=== PATIENT | male | born 1950 ===

== ENCOUNTER → 2020-07-04 | Day surgery (SDC) | payer OTHER ==
[2020-06-29 10:42] LABS: Basophils # (auto) 0.1 10 ^3/uL (0-0.2); Basophils % (auto) 1.2 % (0.0-2.0); Eosinophils # (auto) 0.4 10 ^3/uL (0-0.8); Eosinophils % (auto) 4.6 % (0.0-7.0); Hematocrit 45.2 % (41.0-53.0); Hemoglobin 15.9 g/dL (13.5-17.5); Lymphocytes # (auto) 2.2 10 ^3/uL (0.4-5.4); Lymphocytes % (auto) 23.8 % (10.0-50.0); Mean Corpuscular Hemoglobin 30.8 pg (28.0-32.0); Mean Corpuscular Hgb Conc. 35.2 g/dL (32.0-36.0); Mean Corpuscular Volume 87.3 fL (80.0-100.0); Monocytes # (auto) 1.1 10 ^3/uL (0-1.3); Neutrophils # (auto) 5.4 10 ^3/uL (1.6-8.6); Neutrophils % (auto) 58.4 % (37.0-80.0); Nucleated Red Blood Cells % 0.7 %; Platelet Count (auto) 251 10^3/uL (140-450); Red Blood Cells 5.18 10^6/uL (4.5-5.90); Red Cell Distribution Width 14.2 % (11.8-14.3); White Blood Cell 9.2 10^3/uL (4.4-10.8)
[2020-06-29 10:58] LABS: INR 1.03 (0.9-1.15)
[~2020-07-04] VITALS: Ht 170.2 cm; Wt 83.9 kg
[~2020-07-04] MED LIST: ASPI-498 PO; ASPITAB37 PO; ATOR20TA50 PO; BACL20TA PO; BENA20TA14 PO; ESCI20TA PO; GABA300C10 PO; HYDR25TA4 PO; OXY10CRT PO; OXYB10GE PO; PANT1INJ3 PO; SODIUM CHLORIDE LOCK 10 ML ONE; TAMS1CAP25 PO; ZOLP12.569 PO; diphenhdrAMINE HCL 50 MG/1 ML VL ONE
[2020-07-04] MEDS: fentaNYL CITRATE 100 MCG/2 ML VL ONE ×3 (13:13→13:19)
[2020-07-04] MEDS: MIDAZOLAM HCL 5 MG/ML-1ML VIAL ONE ×3 (13:13→13:34)
[2020-07-04 14:20] VITALS: BP 101/56
== END | disposition home or self-care (01) ==
LOC: SUR 11:27
PROVIDERS: ATTEND Internal Medicine Gastroenterology
DX: Z12.11 Encounter for screening for malignant neoplasm of colon (principal); D12.2 Benign neoplasm of ascending colon; K63.89 Other specified diseases of intestine; K57.30 Diverticulosis of large intestine without perforation or abscess without bleeding; K64.8 Other hemorrhoids; Z20.822 Contact with and (suspected) exposure to COVID-19; G83.9 Paralytic syndrome, unspecified; Z98.890 Other specified postprocedural states; Z79.899 Other long term (current) drug therapy; Z79.82 Long term (current) use of aspirin; F17.200 Nicotine dependence, unspecified, uncomplicated; Z86.010 Personal history of colon polyps
CPT/HCPCS: 36415; 45380; 85025; 85610; 85730; J1200; J2250; J3010; J7030; U0003; 99153; G0500